=== PATIENT | male | born 1970 | race Caucasian/White ===

== ENCOUNTER 2020-12-15 09:47 | Outpatient (CLI) | payer MEDICARE, MEDICAID, SELFPAY | END 2020-12-15 09:48 | disposition home or self-care (01) | PROVIDERS: PCP Family Medicine; Visit Provider Family Medicine | DX: H91.93 Unspecified hearing loss, bilateral (principal) | CPT/HCPCS: 92557; 92567 ==

== ENCOUNTER 2023-12-06 09:25 | Outpatient (CLI) | payer MEDICARE, MEDICAID, SELFPAY | END 2023-12-06 09:26 | disposition home or self-care (01) | LOC: ANHBWCAUD 09:25 | PROVIDERS: PCP Family Medicine; Visit Provider Family Medicine | DX: H91.93 Unspecified hearing loss, bilateral (principal) | CPT/HCPCS: 92557; 92567 ==